=== PATIENT | male | born 1960 | race Caucasian/White ===

== ENCOUNTER 2021-07-02 15:24 | Inpatient (IN) ==
[2021-07-02] MEDS ORDERED: ASPIRIN 325 MG TABLET PO STA (15:56)
[2021-07-02 16:13] LABS: Basophils % 0.3 % (0.0-0.8); Eosinophils % 0.2 % (0.00-10.9); Hematocrit 47.3 VOL% (42.0-52.0); Hemoglobin 16.1 GM/DL (14.0-18.0); Immature Granulocytes % 0.6 %; Immature Granulocytes Absolute 0.08 #; Lymphocytes % 8.1 % (21.2-54.2); Mean Corpuscular Volume 89.2 FL (87-102); Mean Platelet Volume 10.7 FL (9.6-12.0); Neutrophils % 86.8 % (38.7-73.9); Platelet Count 199 T/CUMM (130-400); Red Cell Distribution Width 12.8 % (9.3-17.3); White Blood Count 12.9 T/CUMM (4-12)
[2021-07-02] MEDS ORDERED: HYDROmorphone 2 MG/1 ML VIAL IV STA (16:22)
[2021-07-02] MEDS ORDERED: HYDROmorphone 2 MG/1 ML VIAL ONE (16:24)
[2021-07-02] MEDS ORDERED: ONDANSETRON 4 MG/2 ML VIAL IV PRN (16:28)
[2021-07-02] MEDS ORDERED: ACETAMINOPHEN 325 MG TABLET PO PRN (16:28)
[2021-07-02] MEDS ORDERED: ASPIRIN CHEW 81 MG TABLET PO PRN (16:33)
[2021-07-02] MEDS ORDERED: GLUCAGON 1 MG VIAL IM PRN ×2 (16:39)
[2021-07-02] MEDS ORDERED: DEXTROSE 50% 25 GM/50 ML VIAL IV PRN ×2 (16:39)
[2021-07-02] MEDS: HEPARIN DRIP 25,000 UNITS/500 ML PREMIX IV SCH (17:30)
[2021-07-02] MEDS: LACTATED RINGERS 1,000 ML IV SCH (17:30)
[2021-07-02 18:04] LABS: Potassium 4.5 MMOL/L (3.5-5.1)
[2021-07-02 18:06] LABS: Calcium 9.4 MG/DL (8.5-10.1)
[2021-07-02 18:07] LABS: Osmolality,Calculated 275.4 MOS/KG (273-304)
[2021-07-02] MEDS: AMITRIPTYLINE 25 MG TABLET PO SCH (21:34)
[2021-07-02] MEDS: SIMVASTATIN 20 MG TABLET PO SCH (21:34)
[2021-07-03 03:44] LABS: Basophils # 0.1 10*3/uL (0.0-0.2); Basophils % 0.8 % (0.0-0.8); Eosinophils # 0.2 10*3/uL (0.0-0.87); Hematocrit 44.6 VOL% (42.0-52.0); Immature Granulocytes % 0.5 %; Immature Granulocytes Absolute 0.05 #; Lymphocytes # 3.2 10*3/uL (1.4-4.0); Lymphocytes % 31.3 % (21.2-54.2); Mean Corpuscular HGB Conc 33.6 GM/DL (32-36); Mean Corpuscular Volume 89.6 FL (87-102); Mean Platelet Volume 9.6 FL (9.6-12.0); Monocytes % 6.2 % (1.7-12.7); Neutrophils % 59.2 % (38.7-73.9); Platelet Count 179 T/CUMM (130-400); Red Blood Count 4.98 MC/CUMM (3.8-5.5); Red Cell Distribution Width 12.9 % (9.3-17.3); White Blood Count 10.3 T/CUMM (4-12)
[2021-07-03 04:24] LABS: Calcium 8.6 MG/DL (8.5-10.1); Osmolality,Calculated 275.1 MOS/KG (273-304)
[2021-07-03 04:28] LABS: Risk Ratio 4.22
[2021-07-03] MEDS: PANTOPRAZOLE 40 MG TABLET PO SCH (11:01)
[2021-07-03] MEDS: HEPARIN DRIP 25,000 UNITS/500 ML PREMIX IV SCH (12:45)
[2021-07-03] MEDS: LACTATED RINGERS 1,000 ML IV SCH ×2 (12:49→13:31)
[2021-07-03] MEDS: CHLORTHALIDONE 25 MG TABLET PO SCH (12:50)
[2021-07-03] MEDS: FLUoxetine 20 MG CAPSULE PO SCH (12:51)
[2021-07-03] MEDS: lisinopriL 20 MG TABLET PO SCH (12:51)
[2021-07-03] MEDS ORDERED: MIDAZOLAM 2 MG/2 ML VIAL IV ONE (13:11)
[2021-07-03] MEDS ORDERED: fentaNYL 100 MCG/2 ML VIAL IV ONE (13:11)
[2021-07-03] MEDS ORDERED: SODIUM CHLORIDE 0.45% 1,000 ML IV SCH (13:30)
[2021-07-03] MEDS ORDERED: HEPARIN/NACL 0.9% 2 UNITS/ML 4,000 UNIT/2,000 ML BAG IV ONE (13:33)
[2021-07-03] MEDS ORDERED: THROMBIN TOPICAL (RECOMBINANT) 5,000 UNIT VIAL TOP ONE (14:41)
[2021-07-03] MEDS ORDERED: ALTEPLASE 2 MG VIAL ONE ×2 (14:43→14:58)
[2021-07-03] MEDS ORDERED: HEPARIN 5,000 UNIT/1 ML VIAL ONE (14:59)
[2021-07-03] MEDS: HEPARIN 5,000 UNIT/1 ML VIAL IV PRN ×2 (15:00→15:35)
[2021-07-03] MEDS: AMITRIPTYLINE 25 MG TABLET PO SCH (21:43)
[2021-07-03] MEDS: SIMVASTATIN 20 MG TABLET PO SCH (21:43)
[2021-07-03] MEDS ORDERED: ENOXAPARIN 40 MG/0.4 ML SYRINGE SUBCUT ONE (23:00)
[2021-07-04 06:04] LABS: Basophils # 0.1 10*3/uL (0.0-0.2); Basophils % 0.8 % (0.0-0.8); Eosinophils # 0.6 10*3/uL (0.0-0.87); Eosinophils % 7.5 % (0.00-10.9); Hematocrit 41.7 VOL% (42.0-52.0); Immature Granulocytes % 0.4 %; Immature Granulocytes Absolute 0.03 #; Lymphocytes # 2.9 10*3/uL (1.4-4.0); Lymphocytes % 36.6 % (21.2-54.2); Mean Corpuscular HGB Conc 33.6 GM/DL (32-36); Mean Corpuscular Volume 90.7 FL (87-102); Mean Platelet Volume 9.8 FL (9.6-12.0); Monocytes % 7.7 % (1.7-12.7); Platelet Count 169 T/CUMM (130-400); Red Cell Distribution Width 12.8 % (9.3-17.3); White Blood Count 7.9 T/CUMM (4-12)
[2021-07-04 06:17] LABS: Calcium 8.2 MG/DL (8.5-10.1); Osmolality,Calculated 277.8 MOS/KG (273-304); Potassium 3.7 MMOL/L (3.5-5.1)
[2021-07-04] MEDS ORDERED: RIVAROXABAN 2.5 MG TABLET PO SCH (09:00)
[2021-07-04] MEDS: lisinopriL 20 MG TABLET PO SCH (09:08)
[2021-07-04] MEDS: PANTOPRAZOLE 40 MG TABLET PO SCH (09:08)
[2021-07-04] MEDS: CHLORTHALIDONE 25 MG TABLET PO SCH (09:08)
[2021-07-04] MEDS: FLUoxetine 20 MG CAPSULE PO SCH (09:08)
[2021-07-04] MEDS: LACTATED RINGERS 1,000 ML IV SCH (10:14)
[2021-07-04 12:33] VITALS: BP 126/66
== END 2021-07-04 15:04 | disposition home or self-care (01) | DRG 272 ==
LOC: N.ED 15:24 → N.EDINP 16:28 → N.3E 20:16
PROVIDERS: ADMIT Surgery; ATTEND Surgery